=== PATIENT | female | born 1965 | race Caucasian/White ===

== ENCOUNTER 2016-09-21 12:17 | Day surgery (SDC) | payer BC ==
[~2016-09-21] VITALS: Ht 165.1 cm; Wt 60.7 kg
[2016-09-21] MEDS ORDERED: ALBUTEROL (13:02)
[2016-09-21] MEDS ORDERED: ZANTAC (13:02)
[2016-09-21] MEDS ORDERED: COLACE (13:02)
[2016-09-21 13:04] VITALS: Ht 165.1 cm; Wt 60.7 kg
[2016-09-21] MEDS ORDERED: PROPOFOL 40 ML ONE (14:11)
[2016-09-21 14:24] VITALS: BP 90/51; PULSE 71; RESP 12
[2016-09-21 15:20] VITALS: BP 104/53; PULSE 65; RESP 14
--- NOTE | 2016-09-21 16:02 | GILP ---
DATE OF PROCEDURE: NAME OF PROCEDURES: 1. Esophagogastroduodenoscopy and biopsy. 2. Colonoscopy and biopsy. SURGEON: Alonso Contreras MD PREOPERATIVE DIAGNOSES: 1. Chronic heartburn. 2. Screening colonoscopy. POSTOPERATIVE DIAGNOSES: 1. Hiatal hernia. 2. Reflux esophagitis with erosions. 3. Gastritis with erosions. 4. Gastric mucosal biopsies were taken for Helicobacter pylori test. 5. Colonoscopy all the way to the cecum. 6. Small transverse colon polyp and a small sigmoid colon polyp was removed using the biopsy forcep s. 7. Internal hemorrhoids. INDICATION FOR THE PROCEDURE: Ms. Hollis Franks is a 51-year-old female patient who had chronic heartburn, not responding to therapy. Patient also had a history of colon polyps and she needed scr eening colonoscopy. The procedures and possible complications were well explained to the patient. She understood and con sented to the procedures. DESCRIPTION OF PROCEDURE: Under the influence of anesthesia, the gastroscope was carefully introduc ed into the esophagus and under direct vision it was advanced to the stomach and through the pylorus , into the duodenal bulb and descending duodenum. FINDINGS: ESOPHAGUS: The patient had a hiatal hernia with reflux esophagitis. STOMACH: The patient had gastritis. Gastric mucosal biopsies were taken for the H. pylori test. DUODENUM: Normal. The colonoscope was carefully introduced in the rectum and under direct vision it was advanced all t he way to the cecum. FINDINGS: The patient had a small transverse colon polyp and a small polyp in the sigmoid colon and they were removed using the biopsy forceps. She was noted to have internal hemorrhoids. She tolerated the procedures very well and there was no complication from the procedures. At the en d of the procedures, she was awake with stable vital signs and she was discharged home to the care o f her family. IMPRESSION: Please see postoperative diagnoses. PLAN: 1. Nexium 24 hours p.o. q.a.m. 2. Await histopathology reports. 3. Next screening colonoscopy in 10 years. Dictated By: ALONSO ALVAREZ/JENNIFER Conf#: [id number] DID#: [id number]
== END 2016-09-21 15:19 | disposition home or self-care (01) ==
LOC: GIL 12:17
PROVIDERS: ATTEND Internal Medicine Gastroenterology
DX: Z12.11 Encounter for screening for malignant neoplasm of colon (principal); D12.3 Benign neoplasm of transverse colon; K44.9 Diaphragmatic hernia without obstruction or gangrene; K21.0 Gastro-esophageal reflux disease with esophagitis; K29.60 Other gastritis without bleeding; K64.8 Other hemorrhoids; J45.909 Unspecified asthma, uncomplicated
CPT/HCPCS: 43239; 45380; 87081; 88305; Z7610

== ENCOUNTER 2018-06-23 10:49 | Inpatient (IN) | payer BC ==
[~2018-06-23] VITALS: Ht 170.2 cm; Wt 60.6 kg
[~2018-06-23 10:49] MED LIST: ALBUTEROL; COLACE; ZANTAC
--- NOTE | 2018-06-23 11:25 | NUR ---
Procedure Ordered: CTA CEREBRAL NECK ANGIO Reason for Exam Today: CODE STOKE NUMBNESS WEAKNESS Previous Exams: Allergies: Current Medications Taken: Glucophage ( ) Metformin ( ) Previous reaction to contrast media: Yes ( ) No ( X) : Yes ( ) No ( X) Asthma: Yes ( ) No (X ) Diabetes: Yes ( ) No (X ) Myeloma: Yes ( ) No (X ) Heart Disease: Yes ( ) No (X ) Cardiac Disease: Yes ( ) No (X ) Kidney Disease: Yes ( ) No (X ) Vascular Disease: Yes ( ) No (X ) Patient Teaching done: Yes ( X) No ( ) Accounts Payable Processor Used: Yes ( ) No (X ) Name of Accounts Payable Processor: Language Used: As part of the test requested by your doctor, contrast media may be injected into your vein while the x-rays are being taken. Occasionally, reactions from IV contrast may occur. The physician and staff of this hospital are trained to treat these reactions. Select the type of Contrast that will be given to patient: Omnipaque 300 ( ) Omnipaque 350 ( ) Visipaque 320 (X ) Cystografin ( ) Gastrographin ( ) Redi-cat ( ) Volumen ( ) Amount of contrast to be given: 90CC IV ( X) PO ( ) Date given: 06/23/18 Lab Values: BUN: Creatinine: eGFR: NO LABS AT TIME OF SERVICE Reason why contrast cannot be given: Location of patient pre-procedure: ER BED5 Location of patient post procedure:ER BED 5 Patient tolerated exam well and returned to unit.
--- NOTE | 2018-06-23 11:27 | ERD ---
ER Documentation Chief Complaint Chief Complaint weakness & numbness in lft lower leg last night, dragging left leg, speech HPI This is a 53 year old female with a prior history of tobacco use who presents with weakness and numbness of her LLE since last night. Today noted intermittent slurred speech. No history of trauma, denies fever, no chest pain or shortness of breath ROS All systems reviewed and are negative except as per history of present illness. Medications Home Meds Discontinued Reported Medications [Colace] No Conflict Check 09/21/16 [Zantac] No Conflict Check 09/21/16 [Albuterol] No Conflict Check 09/21/16 Allergies Allergies: Coded Allergies: No Known Allergy (Unverified , 06/23/18) PMhx/Soc History of Surgery: Yes (KNEE SX) Anesthesia Reaction: No Hx Neurological Disorder: Yes (LUPUS) Hx Psychiatric Problems: No Hx Miscellaneous Medical Probl: No Hx Alcohol Use: No Hx Substance Use: No Hx Tobacco Use: No Physical Exam Vitals Vital Signs Date Temp Pulse Resp B/P (MAP) Pulse Ox O2 O2 Flow FiO2 Time Delivery Rate 06/23/18 75 17 116/69 100 Room Air 11:45 (85) 06/23/18 98.2 89 18 110/65 99 10:53 (80) Physical Exam Const: No acute distress Head: Atraumatic Eyes: Normal Conjunctiva ENT: Normal External Ears, Nose and Mouth. Neck: Full range of motion. No meningismus. Resp: Clear to auscultation bilaterally Cardio: Regular rate and rhythm, no murmurs Abd: Soft, non tender, non distended. Normal bowel sounds Skin: No petechiae or rashes Back: No midline or flank tenderness Ext: No cyanosis, or edema Neur: Awake and alert, CN II-XII, no cerebellar ataxia. There is 5/5 strength in all extremities with the exception of of the LLE where there is 4/5 over the left foot Psych: Normal Mood and Affect Result Diagram: 06/25/18 0547 06/25/18 0547 Results 24 hrs Laboratory Tests Test 06/23/18 11:15 White Blood Count 10.3 10^3/ul Red Blood Count 3.98 10^6/ul Hemoglobin 12.4 g/dl Hematocrit 38.2 % Mean Corpuscular Volume 96.0 fl Mean Corpuscular Hemoglobin 31.2 pg Mean Corpuscular Hemoglobin Concent 32.5 g/dl Red Cell Distribution Width 12.9 % Platelet Count 295 10^3/UL Mean Platelet Volume 8.7 fl Immature Granulocytes % 0.300 % Neutrophils % 63.6 % Lymphocytes % 22.4 % Monocytes % 6.3 % Eosinophils % 6.7 % Basophils % 0.7 % Nucleated Red Blood Cells % 0.0 /100WBC Immature Granulocytes # 0.030 10^3/ul Neutrophils # 6.6 10^3/ul Lymphocytes # 2.3 10^3/ul Monocytes # 0.7 10^3/ul Eosinophils # 0.7 10^3/ul Basophils # 0.1 10^3/ul Nucleated Red Blood Cells # 0.0 10^3/ul Prothrombin Time 12.1 Sec Prothrombin Time Ratio 0.9 INR International Normalized Ratio 0.89 Activated Partial Thromboplast Time 29.1 Sec Sodium Level 138 mmol/L Potassium Level 4.1 mmol/L Chloride Level 103 mmol/L Carbon Dioxide Level 28 mmol/L Anion Gap 7 Blood Urea Nitrogen 12 mg/dl Creatinine 0.87 mg/dl Est Glomerular Filtrat Rate mL/min > 60 mL/min Glucose Level 89 mg/dl Hemoglobin A1c 5.3 % Calcium Level 9.5 mg/dl Creatine Kinase 126 IU/L Creatine Kinase Index 1.4 Creatinine Kinase MB (Mass) 1.71 ng/ml Troponin I < 0.012 ng/ml Triglycerides Level 210 mg/dl Cholesterol Level 191 mg/dl LDL Cholesterol, Calculated 90 mg/dl HDL Cholesterol 59 mg/dl Cholesterol/HDL Ratio 3.2 RATIO Free Thyroxine 1.03 ng/dl Ethyl Alcohol Level < 10.0 mg/dl Procedures/MDM This is a 53 year old female who presents with left foot numbness and intermittent slurred speech. Code stroke called given onset of symptoms, although also considered that LLE symptoms could be peripheral neuropathy. CT was negative for acute findings. tPA not recommended per neurology. Recommended MRI to evaluate for possible stroke. Patient admitted to medicine hospitalist team. Departure Diagnosis: Primary Impression: Acute weakness Additional Impression: Slurred speech AZRA KELLER MD Jun 23, 2018 11:27
--- NOTE | 2018-06-23 12:05 | STROKE ---
Date/Time of Note Date/Time of Note DATE: 06/23/18 TIME: 12:04 Patient Information General Patient location: emergency Arrival Date Age 53 Gender female Weight 60.2 kg Vital Signs Vital Signs Vital Signs Date Temp Pulse Resp B/P (MAP) Pulse Ox O2 O2 Flow FiO2 Time Delivery Rate 06/23/18 75 17 116/69 100 Room Air 11:45 (85) 06/23/18 98.2 10:53 Patient History Current Medications Allergies: Coded Allergies: No Known Allergy (Unverified , 06/23/18) Labs Coagulation Labs: Coagulation Test 06/23/18 11:15 Activated Partial Thromboplast Time 29.1 Sec (23.0-35.0) History & Physical History of Present Illness 53 F PMH SLE, Raynaud's, HTN, LKW 2300 PST 06/22/2018 with LLE weakness. Later developed dysarthria today. NIH Stroke Scale NIH Stroke Scale [id number] Total Score: [id number] Date/Time Recorded DATE: 06/23/18 TIME: 11:33 Submitted By Hunter Ramos t-PA Imaging Review Date/Time Imaging Reviewed DATE: 06/23/18 TIME: 12:04 t-PA Administration Weight 60.2 kg Recommedation submitted by Hunter Ramos Recommendations Recommendation 53 F with 12 hrs of isolated mild LLE weakness/numbness. Question regarding stroke as possible cause. NIHSS 1 for mild LLE weakness. Localization outside of [employer]ING [employer] more likely, but stroke can be further ruled-out with MRI Brain. - MRI Brain stroke sequence (Flair, DWI, ADC) can further rule-out stroke. If no stroke on MRI Brain then further work-up for non-cerebral causes per local Neurology team HUNTER RAMOS MD Jun 23, 2018 12:05
[2018-06-23 13:13] VITALS: PULSE 83
[2018-06-23] MEDS ORDERED: HYDROCODONE/APAP (5/325) TAB PO PRN ×2 (13:30)
[2018-06-23] MEDS ORDERED: ALBUTEROL/IPRATROPIUM (NEB) 3 ML AMP HHN PRN (13:30)
[2018-06-23] MEDS ORDERED: ACETAMINOPHEN 325 MG TAB PO PRN ×2 (13:30)
[2018-06-23] MEDS ORDERED: DOCUSATE SODIUM 100 MG CAP PO PRN ×2 (13:30)
[2018-06-23] MEDS ORDERED: NACL 0.9% 3 ML SYG IV SCH ×2 (13:30)
[2018-06-23] MEDS ORDERED: NITROGLYCERIN (SL) 0.4 MG TAB SL PRN (13:30)
[2018-06-23] MEDS ORDERED: ONDANSETRON 4 MG INJ IV PRN ×2 (13:30)
[2018-06-23] MEDS ORDERED: morphine 2 MG INJ IV PRN (13:30)
[2018-06-23] MEDS ORDERED: MAGNESIUM HYDROXIDE 30ML CUP PO PRN ×2 (13:30)
--- NOTE | 2018-06-23 13:48 | HP ---
Date/Time of Note Date/Time of Note DATE: 06/23/18 TIME: 13:45 Assessment/Plan VTE Prophylaxis SCD applied (from Nsg): Yes Pharmacological prophylaxis: other Lines/Catheters IV Catheter Type (from Nrsg): Saline Lock Assessment/Plan Hospital Course Assessment and plan: 53-year-old female hypertension, smoker, lupus, Raynaud's who comes in with left lower extremity numbness anterior rojas and left foot drop, rule out stroke versus TIA. #Left lower extremity weakness: Rule out stroke versus TIA. Again she is got numbness on the left anterior rojas area and cannot dorsiflex left foot. CTA head neck shows abnormalities. -Admit patient, allow for permissive hypertension, check TSH A1c lipid panel -Put patient on high-dose aspirin, Lipitor, get neurology consult -Follow-up results of MRI brain, echo, carotid Doppler study, get PT and OT and speech therapy consults as well #Smoking history: Patient refusing nicotine patch, counseled on cessation # HTN -see above, for now allow for permissive hypertension at least for 24 hours #Lupus and Raynaud's: No present issues continue - monitor for now Result Diagram: 06/23/18 1115 06/23/18 1115 Results 24hrs Laboratory Tests Test 06/23/18 11:15 White Blood Count 10.3 Red Blood Count 3.98 L Hemoglobin 12.4 Hematocrit 38.2 Mean Corpuscular Volume 96.0 Mean Corpuscular Hemoglobin 31.2 Mean Corpuscular Hemoglobin Concent 32.5 Red Cell Distribution Width 12.9 Platelet Count 295 Mean Platelet Volume 8.7 Immature Granulocytes % 0.300 Neutrophils % 63.6 Lymphocytes % 22.4 Monocytes % 6.3 Eosinophils % 6.7 Basophils % 0.7 Nucleated Red Blood Cells % 0.0 Immature Granulocytes # 0.030 Neutrophils # 6.6 Lymphocytes # 2.3 Monocytes # 0.7 Eosinophils # 0.7 H Basophils # 0.1 Nucleated Red Blood Cells # 0.0 Prothrombin Time 12.1 Prothrombin Time Ratio 0.9 INR International Normalized Ratio 0.89 Activated Partial Thromboplast Time 29.1 Sodium Level 138 Potassium Level 4.1 Chloride Level 103 Carbon Dioxide Level 28 Anion Gap 7 Blood Urea Nitrogen 12 Creatinine 0.87 Est Glomerular Filtrat Rate mL/min > 60 Glucose Level 89 Hemoglobin A1c 5.3 Calcium Level 9.5 Creatine Kinase 126 Creatine Kinase Index 1.4 Creatinine Kinase MB (Mass) 1.71 Troponin I < 0.012 Triglycerides Level 210 H Cholesterol Level 191 LDL Cholesterol, Calculated 90 HDL Cholesterol 59 Cholesterol/HDL Ratio 3.2 Ethyl Alcohol Level < 10.0 H HPI/ROS Admit Date/Time Admit Date/Time Jun 23, 2018 at 11:59 Hx of Present Illness 53-year-old female past medical history of smoking for 30 years, hypertension, renounce disease, lupus, who presents today after experiencing left lower extremity foot numbness and weakness. Patient states symptoms have been last night. She called family member who is a nursing assistants teacher who reassured patient that symptoms may not be too concerning. But did recommend patient take baby aspirin which she took. She was able to walk. She went to sleep but this morning the symptoms persisted which included numbness and weakness particularly in the foot area. Patient however states she is able to ambulate. No upper or lower GI bleeding, diarrhea, space, fever chills, nausea vomiting, chest pain shortness breath. Patient never had these symptoms before. Denies any prior history of any stroke or heart attack. She became concerned and came into the ER. When she came in a code stroke was called. Head CT appeared to be negative. However CTA neck showed: Mild intracranial hemorrhage or large territorial infarct. Early ischemic injury may be occult to CT imaging and diffusion weighted MRI may be considered as clinically warranted. MRI of the brain is pending. PMH/Family/Social Past Medical History Medications Current Medications IV Flush (NS 3 ml) 3 ml PER PROTOCOL IV ; Start 06/23/18 at 13:30; Status UNV Ondansetron HCl (Zofran Inj) 4 mg Q6H PRN IV NAUSEA AND/OR VOMITING; Start 06/23/18 at 13:30; Status UNV Acetaminophen (Tylenol Tab) 650 mg Q6H PRN PO PAIN LEVEL 1-3 OR FEVER; Start 06/23/18 at 13:30; Status UNV Acetaminophen/ Hydrocodone Bitart (Par[place]ise (5/325)) 1 tab Q6H PRN PO MODERATE PAIN LEVEL 4-6; Start 06/23/18 at 13:30; Status UNV Morphine Sulfate (morphine) 2 mg Q4H PRN IV SEVERE PAIN LEVEL 7-10; Start 06/23/18 at 13:30; Status UNV Docusate Sodium (Colace) 100 mg Q12H PRN PO CONSTIPATION; Start 06/23/18 at 13:30; Status UNV Magnesium Hydroxide (Milk Of Mag) 30 ml DAILY PRN PO CONSTIPATION; Start 06/23/18 at 13:30; Status UNV Lorazepam (Ativan) 0.5 mg Q6H PRN IV ANXIETY; Start 06/23/18 at 13:30; Status UNV Albuterol/ Ipratropium (Duoneb) 3 ml Q4H RESP THERAPY PRN HHN SHORTNESS OF BREATH; Start 06/23/18 at 13:30; Status UNV Nitroglycerin (Nitroglycerin (Sl Tab) 0.4 Mg) 1 tab Q5M PRN SL ANGINA; Start 06/23/18 at 13:30; Status UNV IV Flush (NS 3 ml) 3 ml PER PROTOCOL IV ; Start 06/23/18 at 13:30; Status UNV Acetaminophen (Tylenol Tab) 650 mg Q6H PRN PO PAIN LEVEL 1-3 OR FEVER; Start 06/23/18 at 13:30; Status UNV Acetaminophen/ Hydrocodone Bitart (Paradise (5/325)) 1 tab Q6H PRN PO MODERATE PAIN LEVEL 4-6; Start 06/23/18 at 13:30; Status UNV Morphine Sulfate (morphine) 2 mg Q4H PRN IV SEVERE PAIN LEVEL 7-10; Start 06/23/18 at 13:30; Status UNV Docusate Sodium (Colace) 100 mg Q12H PRN PO CONSTIPATION; Start 06/23/18 at 13:30; Status UNV Magnesium Hydroxide (Milk Of Mag) 30 ml DAILY PRN PO CONSTIPATION; Start 06/23/18 at 13:30; Status UNV Heparin Sodium (Porcine) (Heparin (5000 Units/1ml)) 5,000 unit Q12 SC ; Start 06/23/18 at 21:00; Status UNV Coded Allergies: No Known Allergy (Unverified , 06/23/18) Past Surgical History Past Surgical Hx: other (Shoulder) Family History Significant Family History: no pertinent family hx Social History Alcohol Use: occasionally Smoking Status: Current every day smoker (53-lkgc-uutg history) Drug Use: none Exam/Review of Systems Vital Signs Vitals Vital Signs Date Temp Pulse Resp B/P (MAP) Pulse Ox O2 O2 Flow FiO2 Time Delivery Rate 06/23/18 72 17 131/83 100 Room Air 12:52 (99) 06/23/18 98.2 10:53 Exam Exam Gen: lying in bed, no acute distress Head: Atraumatic Eyes: Normal Conjunctiva ENT: Normal External Ears, Nose and Mouth. Neck: Full range of motion. No meningismus. Resp: Clear to auscultation bilaterally Cardio: Regular rate and rhythm, no murmurs Abd: Soft, non tender, non distended. Normal bowel sounds Neuro: some LLE numbness anterior rojas, not able to dorsiflex left foot, rest of neurologic exam including strength and sensation both upper and lower extremities appears to be intact. Gait was not assessed LUIS MIGUEL DOVE Jun 23, 2018 13:47
[2018-06-23 14:00] VITALS: BP 124/66; PULSE 74; RESP 20
[2018-06-23] MEDS ORDERED: morphine 4 MG/ML VIAL IV PRN (14:00)
--- NOTE | 2018-06-23 14:00 | NUR ---
Admission Received Pt from ER via stretcher. Pt ao x 4 and stable. Per Pt she went to the ER because of numbness on her left lower leg. Pt stated that it started last night till this morning. Pt placed in manager cardiac cath. NIHSS assessment and Stroke checklist done. Admission assessment and questions done. Pt refused to have pictures taken, charge nurse made aware. Belongings kept with Pt in room consist as: 1 set of clothes, 1 purse, 1 wallet, 1 phone instruction assistant principal, 1 cellphone, 1 eyeglasses, 1 pair of shoes.
[2018-06-23] MEDS ORDERED: SOD CHLORIDE 0.9% 100 ML ONE (14:10)
[2018-06-23] MEDS ORDERED: IODIXANOL LOCM 100 ML BTL ONE (14:10)
[2018-06-23] MEDS ORDERED: hydrALAzine 20 MG INJ IV PRN (14:30)
[2018-06-23] MEDS: ATORVASTATIN 80 MG TAB PO SCH (14:54)
[2018-06-23 15:11] VITALS: Ht 170.2 cm; Wt 60.6 kg
[2018-06-23 15:19] VITALS: BP 119/67; PULSE 77; RESP 18
[2018-06-23 16:10] VITALS: PULSE 85
--- NOTE | 2018-06-23 18:23 | NUR ---
EOSS Pt ao x4 and stable at this time. Pt in no distress noted throughout the shift. Neuro check done and no change noted, Pt continues to complain of left lower leg numbness. Bedside swallow evaluation done and Pt passed. Pt was updated regarding plan of care. Pt stated she wanted to smoke outside. Pt was instructed that the hospital is a smoke free zone. Pt refused to use nicotine patch. Provided Pt education regarding smoking cessation. Charge nurse made aware. Call light within reach. Hourly rounding provided. Will endorse to next shift accordingly.
[2018-06-23 20:00] VITALS: BP 138/83; PULSE 91; PULSE 96; RESP 19
[2018-06-23] MEDS ORDERED: HEPARIN 5,000 UNIT/1 ML VIAL SC SCH (21:00)
[2018-06-23] MEDS: LORAZEPAM 2 MG INJ IV PRN (23:00)
[2018-06-24] VITALS (8 sets, daily range): BP systolic 114–138; BP diastolic 63–79; PULSE 67–93; RESP 17–20
--- NOTE | 2018-06-24 06:43 | NUR ---
EOSS AAOx4, VSS, O2 sat 96% on RA, no complaints of pain. Neuro checks Q4H, no major changes noted during neuro checks. Patient has slight limb drift of LLE and mild sensory loss. Patient complaint of difficulty sleeping, Ativan PRN administered x1. Hourly rounding done, encouraged pt. to reposition self in bed frequently. Patient stable at this time, will endorse to oncoming shift.
[2018-06-24] MEDS: ASPIRIN (EC) 81 MG TAB PO SCH (08:53)
[2018-06-24] MEDS: ATORVASTATIN 80 MG TAB PO SCH (08:53)
--- NOTE | 2018-06-24 09:53 | RADRPT ---
Echocardiogram Report Patient Name: LUKAS BAL Gender: Female Date: 1965 Study Date: 23-Jun-2018 Packing Machine Can Feeder: Jennifer Jesus RDCS Location: 510-A Ref. Physician: LUIS MIGUEL DOVE Quality: Adequate Procedures: Transthoracic echocardiogram with complete 2D, M-Mode, and doppler examination. Indications: Coronary Artery Disease. 2D/M Mode Doppler Measurement Value Normal Ranges Measurement Value Normal Ranges LVIDd 2D 3.3 3.5 - 5.6 cm AV Peak Gino 1.4 m/sec LVIDs 2D 2.2 2.1 - 4.1 cm AV Peak PG 8.0 mmHg LVPWd 2D 0.9 0.6 - 1.1 cm LVOT Peak Gino 1.0 m/sec IVSd 2D 0.6 0.6 - 1.1 cm LVOT Peak PG 4.0 mmHg AoR Diam 2D 2.3 2.0 - 3.7 cm MV E Peak Gino 0.9 m/sec LA/Ao 2D 1 0 - 1 MV A Peak Gino 0.7 m/sec LA Dimen 2D 2.8 2.3 - 4.0 cm MV E/A 1.4 MV Decel Time 173 msec Lat E` Gino 0.1 m/sec Lateral E/E` 8.9 Med E` Gino 0.1 m/sec MV E/A 1.4 Findings Left Ventricle: Normal left ventricular systolic function. Normal left ventricular cavity size. Normal left ventricular wall thickness. Ejection fraction is visually estimated at 55 %. Tissue Doppler/Mitral Doppler indices are within normal limits. Right Ventricle: Normal right ventricular size. Normal right ventricular systolic function. Left Atrium: The left atrium is normal in size. Right Atrium: The right atrium is normal in size. Mitral Valve: Normal appearance of the mitral valve. No mitral valve regurgitation is seen. Aortic Valve: Normal appearance of the aortic valve. No aortic regurgitation. Tricuspid Valve: Normal appearance of the tricuspid valve. No evidence of tricuspid regurgitation. Pericardium: Normal pericardium with no significant pericardial effusion. Aorta: Normal aortic root. IVC: Normal size and normal respiratory collapse consistent with normal right atrial pressure. Conclusions Normal left ventricular systolic function. Normal left ventricular cavity size. Normal left ventricular wall thickness. Ejection fraction is visually estimated at 55 %. Tissue Doppler/Mitral Doppler indices are within normal limits. Normal appearance of the mitral valve. No mitral valve regurgitation is seen. Normal appearance of the tricuspid valve. No evidence of tricuspid regurgitation. Electronically Signed By: Eddie Angel 24-Jun-2018 09:52:47 -0800 Patient Name: LUKAS BAL Study Date: 23-Jun-2018 [id number]
--- NOTE | 2018-06-24 10:02 | NUR ---
PT EVALUATION , Therapy day number 1 Evaluation Start Time 09:00 Evaluation Total Time 0 min Subjective Denies pain Pain Scale NUMERIC Pain Intensity 0 (0-10) Patient Stated Goal for Pain Relief 0 (0-10) Pain Level Comment N/A . Pre Treatment Vital Signs Stable Yes - BP:116/67 HR"67 Exercise Assessment Label Bilat Lower Extremity Exercise Type Active ROM Additional Exercise Comments AP, SELF STRETCHING LT FOOT/ANKLE . KNEE FLEX, EXT, SLR , ADD , ABD AND SAQ Supine to Sit Independent Transfer Sit to Stand Ability Independent Bed Mobility Sit to Supine Stand by Assist Bed Transfer Ability Independent Chair Transfer Ability Independent Sitting Tolerance 1 min Patient uses wheelchair Not Applicable Gait Assist Levels Contact Guard Assist Assistive Devices None Ambulation Distance 100 feet Additional Gait Comments ABNORMAL GAIT PATTERN DUE TO LLE WEAKNESS , LT FOOT DROP Weight Bearing Assessment Label Bilat Lower Extremity Weight Bearing Status Full Weight Bearing Static Sitting Balance Good Dynamic Sitting Balance Good Standing Static Balance Good Dynamic Standing Balance Fair plus Additional Balance Assessments Comments WITHOUT AD / REFUSING TO USE AD FOR AMBUKLATION . Safety Judgement Fair Activity Tolerance Good Post Treatment Pain Intensity 0 0-10 Variance Documentation P/S SEE PT NOTE . PT Technical Record Comment PT EVALUATION , RN CLEARED , PATIENT AGREEABLE . PATIENT IS A 53 Y/O FEMALE ALERT AND ORIENTED TO SELF , SITUATION , WITH PMH: HTN , SMOKER , LUPUS , RAYNAUD'S , ADMITTED TO [facility] WITH LLE NUMBNESS, ANTERIOR [place] LT FOOT DROP , AND ADMITTED TO R/O CVA, VS TIA , CT BRAIN REVEALED NO ACUTE INTRACRANIAL PATHOLOGY AND MRI ALSO REVEALED NO ACUTE INFARCT. .P/S SEE PT NOTE FOR PATIENT'S FUNCTIONAL STATUS , GAIT TR WITHOUT AD PERFORMED 100, CG/SAB ( PATIENT UNWILLING TO USE AD ), PATIENT HAS ABNORMAL GAIT PATTERN DUE TO LLE WEAKNESS /NUMBNESS WITH SLIGHT LIMB AND DRIFT OF LLE , NO LOB NOTED , VS STABLE TOLERATED TREATMENT WELL , PATIENT IS CLEARED TO AMBULATE WITH NSG STAFF SHORT DISTANCE , UNTIL HER LT AFO ARRIVES . A: PATIENT LIVES WITH FAMILY IN AN APARTMENT WITH NO ENTRY STAIR , PATIENT HAS BEEN FUNCTIONAL AND IND.AMBULATORY WITHOUT AD , PT RECOMMEND TO PROVIDE LT AFO TO IMPROVE GAIT STABILITY/PREVENT FALL , ALSO PT HIGHLY RECOMMEND TO CONTINUE WITH OUT PATIENT PT ONCE DISCHARGED HOME , RN AND MD NOTIFIED . P: PT DAILY X5 , THERA EXE'S LLE , STR EXE'S LLE , GAIT TR WITH LT AFO, WITH EMPHASIS ON GAIT NORMALIZATION , PATIENT EDUCATION AND TRAINING .
--- NOTE | 2018-06-24 11:15 | NUR ---
ST NOTE: Pt is a 53-year-old female hypertension, smoker, lupus, Raynaud's who comes in with left lower extremity numbness anterior rojas and left foot drop, rule out stroke versus TIA. CT negative for acute stroke MRI showed 1.No acute infarct. No intracranial hemorrhage nor mass lesion. 2. Mild multifocal bifrontal and left parietal subcortical and periventricular white matter disease also involving the janie. Findings are thought most likely to reflect chronic small vessel ischemia. Alternative potential etiologies include sequelae of prior trauma, infection, vasculitis, demyelinating disease or migraine headaches. 3. Deviated nasal septum with large nasal septal defect. 4. Trace paranasal sinus disease without sinus air fluid level. pt afebrile;lungs clear; premorbid diet; reg/thin current diet; reg/thin pt seen with am tray; no overt s/s of difficulty with all textures; cognition wfl; no therapy indicated at this time
--- NOTE | 2018-06-24 15:01 | NUR ---
OT MARBIN: RN CLEARED , PATIENT AGREEABLE . PATIENT IS A 53 Y/O FEMALE WITH HTN , SMOKER , LUPUS , RAYNAUD'S , ADMITTED TO [facility] WITH LLE NUMBNESS, ANTERIOR [place] LT FOOT DROP , AND ADMITTED TO R/O CVA, VS TIA , CT BRAIN REVEALED NO ACUTE INTRACRANIAL PATHOLOGY AND MRI ALSO REVEALED NO ACUTE INFARCT. PLOF: PATIENT LIVES WITH FAMILY IN AN APARTMENT WITH NO ENTRY STAIR , PATIENT HAS BEEN INDEPENDENT WITH ADL'S AND .AMBULATORY WITHOUT AD. CLOF: PT RECEIVED SUPINE IN BED AND AGREEABLE FOR TX. PT AOX4 AND STATED 0/10 PAIN. PT DEMONSTRATED BUE AROM WFL 5/5. PT PERFORMED TOILET TRANSFER WITH SUPERVISION. PT IS INDEPENDENT WITH UB/LB BATHING, DRESSING AND H/G TASKS. PT IS INDEPENDENT/ SUPERVISION WITH ADL'S - NO FURTHER SKILLED OT WARRANTED. D/C OT
--- NOTE | 2018-06-24 15:29 | PN ---
Date/Time of Note Date/Time of Note DATE: 06/24/18 TIME: 15:21 Assessment/Plan VTE Prophylaxis Risk score (from Ns)>0 risk: 1 SCD applied (from Nsg): Yes Pharmacological prophylaxis: NA/contraindicated Pharm contraindication: low risk/ambulating Lines/Catheters IV Catheter Type (from Nrs): Saline Lock Urinary Cath still in place: No Assessment/Plan Assessment/Plan 53-year-old female hypertension, smoker, lupus, Raynaud's who comes in with left lower extremity numbness anterior rojas and left foot drop, rule out stroke versus TIA. #Left lower extremity weakness: Rule out stroke versus TIA. Again she is got numbness on the left anterior rojas area and cannot dorsiflex left foot. CTA head neck shows abnormalities. -MRI and CTA brain reviewed; no stroke but not entirely normal.... Dr. Edwards consulted, will wait for her input. -Put patient on high-dose aspirin, statin. -Follow-up results of MRI brain, echo, carotid Doppler study, get PT and OT and speech therapy consults as well #Smoking history: Patient refusing nicotine patch, counseled on cessation # HTN - currently normotensive. #Lupus and Raynaud's: No present issues continue - monitor for now - She reports lupus flares 10 and 12 years ago (alopecia and malar rash, both treated with steroid course). She's not on plaquenil or other DMARDs. Result Diagram: 06/24/18 0552 06/24/18 0552 Results 24hrs Laboratory Tests Test 06/24/18 05:52 White Blood Count 10.4 Red Blood Count 3.93 L Hemoglobin 12.2 Hematocrit 37.6 Mean Corpuscular Volume 95.7 Mean Corpuscular Hemoglobin 31.0 Mean Corpuscular Hemoglobin Concent 32.4 Red Cell Distribution Width 13.0 Platelet Count 286 Mean Platelet Volume 9.1 Immature Granulocytes % 0.400 Neutrophils % 62.4 Lymphocytes % 22.1 Monocytes % 7.1 Eosinophils % 7.3 H Basophils % 0.7 Nucleated Red Blood Cells % 0.0 Immature Granulocytes # 0.040 H Neutrophils # 6.5 Lymphocytes # 2.3 Monocytes # 0.7 Eosinophils # 0.8 H Basophils # 0.1 Nucleated Red Blood Cells # 0.0 Sodium Level 137 Potassium Level 4.6 Chloride Level 101 Carbon Dioxide Level 27 Anion Gap 9 Blood Urea Nitrogen 19 Creatinine 0.89 Est Glomerular Filtrat Rate mL/min > 60 Glucose Level 98 Hemoglobin A1c 5.3 Calcium Level 9.6 Triglycerides Level 80 Cholesterol Level 169 LDL Cholesterol, Calculated 83 HDL Cholesterol 70 # Cholesterol/HDL Ratio 2.4 Thyroid Stimulating Hormone (TSH) 5.170 H Subjective 24 Hr Interval Summary Free Text/Dictation No acute overnight events. Patient is up and ambulating around with help from PT. Overall seems somewhat anxious. Asking to go home multiple times today but is redirectable, not threatening AMA. Exam/Review of Systems Vital Signs Vitals Vital Signs Date Temp Pulse Resp B/P (MAP) Pulse Ox O2 O2 Flow FiO2 Time Delivery Rate 06/24/18 93 12:13 06/24/18 98.1 18 138/74 100 11:58 (95) 06/23/18 Room Air 15:19 Intake and Output 06/23/18 06/23/18 06/24/18 1414:59 22:59 06:59 IntakeIntake Total 300 ml BalanceBalance 300 ml Exam Gen: Well developed woman standing, ambulatory Eyes: Very dilated pupils bilaterally with poor response to light. Normal conjunctiva ENT: Normal External Ears, Nose and Mouth. Neck: Full range of motion. No meningismus. Resp: Clear to auscultation bilaterally Cardio: Regular rate and rhythm, no murmurs Abd: Soft, non tender, non distended. Normal bowel sounds Neuro: some LLE numbness anterior rojas, not able to dorsiflex left foot, rest of neurologic exam including strength and sensation both upper and lower e xtremities appears to be intact. Able to ambulate a few steps without walker but with L foot drop. Medications Medications Current Medications Ondansetron HCl (Zofran Inj) 4 mg Q6H PRN IV NAUSEA AND/OR VOMITING; Start 06/23/18 at 13:30 Acetaminophen/ Hydrocodone Bitart ([place] (5/325)) 1 tab Q6H PRN PO MODERATE PAIN LEVEL 4-6; Start 06/23/18 at 13:30 Morphine Sulfate (morphine) 2 mg Q4H PRN IV SEVERE PAIN LEVEL 7-10; Start 06/23/18 at 14:00 Magnesium Hydroxide (Milk Of Mag) 30 ml DAILY PRN PO CONSTIPATION; Start 06/23/18 at 13:30 Lorazepam (Ativan) 0.5 mg Q6H PRN IV ANXIETY Last administered on 06/23/18at 23:00; Admin Dose 0.5 MG; Start 06/23/18 at 13:30 Albuterol/ Ipratropium (Duoneb) 3 ml Q4H RESP THERAPY PRN HHN SHORTNESS OF BESSY ATH; Start 06/23/18 at 13:30 Nitroglycerin (Nitroglycerin (Sl Tab) 0.4 Mg) 1 tab Q5M PRN SL ANGINA; Start 06/23/18 at 13:30 IV Flush (NS 3 ml) 3 ml PER PROTOCOL IV ; Start 06/23/18 at 13:30 Acetaminophen (Tylenol Tab) 650 mg Q6H PRN PO PAIN LEVEL 1-3 OR FEVER; Start 06/23/18 at 13:30 Docusate Sodium (Colace) 100 mg Q12H PRN PO CONSTIPATION; Start 06/23/18 at 13:30 Atorvastatin Calcium (Lipitor) 80 mg DAILY PO Last administered on 06/24/18at 08:53; Admin Dose 80 MG; Start 06/23/18 at 14:30 Aspirin (Halfprin) 162 mg DAILY PO Last administered on 06/24/18at 08:53; Admin Dose 162 MG; Start 06/24/18 at 09:00 Hydralazine HCl (Apresoline) 10 mg Q6H PRN IV BLOOD PRESSURE SUPPORT; Start 06/23/18 at 14:30 JORGE LUIS RAMOS MD Jun 24, 2018 15:29
--- NOTE | 2018-06-24 16:40 | CONS ---
Assessment/Plan Assessment/Plan Hospital Course 53 yo F with hx of SLE and other multiple comorbidities who p/w L leg numbness and foot drop, for which neurology is consulted. Her neurologic examination suggests a lower more neuron (peripheral nervous sy stem) etiology... MRI brain is reassuringly without significant intracranial pathology. CTA H/N is the same. P: MRI T/L spine with and without contrast for further characterization Add LFTs, CRP, ESR.. PT/OT as tolerated Other medical management per primary Will follow clinically Result Diagram: 06/24/18 0552 06/24/18 0552 Results 24hrs Laboratory Tests Test 06/24/18 05:52 White Blood Count 10.4 Red Blood Count 3.93 L Hemoglobin 12.2 Hematocrit 37.6 Mean Corpuscular Volume 95.7 Mean Corpuscular Hemoglobin 31.0 Mean Corpuscular Hemoglobin Concent 32.4 Red Cell Distribution Width 13.0 Platelet Count 286 Mean Platelet Volume 9.1 Immature Granulocytes % 0.400 Neutrophils % 62.4 Lymphocytes % 22.1 Monocytes % 7.1 Eosinophils % 7.3 H Basophils % 0.7 Nucleated Red Blood Cells % 0.0 Immature Granulocytes # 0.040 H Neutrophils # 6.5 Lymphocytes # 2.3 Monocytes # 0.7 Eosinophils # 0.8 H Basophils # 0.1 Nucleated Red Blood Cells # 0.0 Sodium Level 137 Potassium Level 4.6 Chloride Level 101 Carbon Dioxide Level 27 Anion Gap 9 Blood Urea Nitrogen 19 Creatinine 0.89 Est Glomerular Filtrat Rate mL/min > 60 Glucose Level 98 Hemoglobin A1c 5.3 Calcium Level 9.6 Triglycerides Level 80 Cholesterol Level 169 LDL Cholesterol, Calculated 83 HDL Cholesterol 70 # Cholesterol/HDL Ratio 2.4 Thyroid Stimulating Hormone (TSH) 5.170 H Consultation Date/Type/Reason Admit Date/Time Jun 23, 2018 at 11:59 Type of Consult Neurology Reason for Consultation LLE numbness, L foot weakness Requesting Provider: JORGE LUIS RAMOS MD Date/Time of Note DATE: 06/24/18 TIME: 16:40 Hx of Present Illness This is a 53 yo F with hx of SLE, reynauds disease, and other comorbidities who presented to the ED with L lower leg numbness and L foot drop. History was obtained from pt, who is a good historian, and chart review. The pt continues to endorse LLE numbness and L foot drop, which has been ongoing since yesterday afternoon, and subsequent gait instability. She denies headache, other weakness, dizziness, lethargy, confusion, speech/vision changes. It is additionally elsewhere noted: Hx of Present Illness 53-year-old female past medical history of smoking for 30 years, hypertension, renounce disease, lupus, who presents today after experiencing left lower extremity foot numbness and weakness. Patient states symptoms have been last night. She called family member who is a spooling supervisor who reassured patient that symptoms may not be too concerning. But did recommend patient take baby aspirin which she took. She was able to walk. She went to sleep but this morning the symptoms persisted which included numbness and weakness particularly in the foot area. Patient however states she is able to ambulate. No upper or lower GI bleeding, diarrhea, space, fever chills, nausea vomiting, chest pain shortness breath. Patient never had these symptoms before. Denies any prior history of any stroke or heart attack. She became concerned and came into the ER. When she came in a code stroke was called. Head CT appeared to be negative. However CTA neck showed: Mild intracranial hemorrhage or large territorial infarct. Early ischemic injury may be occult to CT imaging and diffusion weighted MRI may be considered as clinically warranted. MRI of the brain is pending. negative unless noted otherwise in HPI Exam/Review of Systems Vital Signs Vitals Vital Signs Date Temp Pulse Resp B/P (MAP) Pulse Ox O2 O2 Flow FiO2 Time Delivery Rate 06/24/18 73 16:00 06/24/18 98.4 18 117/79 100 15:32 (92) 06/23/18 Room Air 15:19 Intake and Output 06/23/18 06/23/18 06/24/18 1515:00 23:00 07:00 IntakeIntake Total 300 ml BalanceBalance 300 ml Exam PE: Gen Appearance: No Apparent Distress HEENT: Normocephalic Cardiovascular: Regular rate Lungs: Clear bilaterally Abdomen: Soft Extremities: Dry NE: The patient was alert and oriented. Language was normal. Fund of knowledge was normal. Pupils were equal and reactive to light. There was no afferent pupillary defect. Visual kumar were normal. Funduscopic examination was limited. Extra-ocular movements were full. Ptosis was absent. There was no nystagmus. Facial sensation was normal. Face was symmetric with normal strength. Hearing was intact. Palate movements were normal. Neck strength was normal. There was normal tongue bulk a nd speed of movement. Tone was normal. Muscle bulk was normal. I did not see fasciculations. Arms were strong to confrontation; legs were strong to confrontation; L ankle was strong, R ankle was weak to confrontation with impaired dorsiflexion. Sensation to light touch was diminished on the LLE. Vibration sensation was normal. Temperature and pinprick sensation was normal. Rapid alternating movements were normal. There was no dysmetria. There was no intention tremor. Gait was unsteady, dragging her L foot. Arm and leg reflexes were 2+ and symmetric. Wilson's sign was absent. Plantar responses were flexor. Medications Medications Current Medications Ondansetron HCl (Zofran Inj) 4 mg Q6H PRN IV NAUSEA AND/OR VOMITING; Start 06/23/18 at 13:30 Acetaminophen/ Hydrocodone Bitart ([place]amb[place] (5/325)) 1 tab Q6H PRN PO MODERATE PAIN LEVEL 4-6; Start 06/23/18 at 13:30 Morphine Sulfate (morphine) 2 mg Q4H PRN IV SEVERE PAIN LEVEL 7-10; Start 06/23/18 at 14:00 Magnesium Hydroxide (Milk Of Mag) 30 ml DAILY PRN PO CONSTIPATION; Start 06/23 at 13:30 Lorazepam (Ativan) 0.5 mg Q6H PRN IV ANXIETY Last administered on 06/23/18at 23:00; Admin Dose 0.5 MG; Start 06/23/18 at 13:30 Albuterol/ Ipratropium (Duoneb) 3 ml Q4H RESP THERAPY PRN HHN SHORTNESS OF BREATH; Start 06/23/18 at 13:30 Nitroglycerin (Nitroglycerin (Sl Tab) 0.4 Mg) 1 tab Q5M PRN SL ANGINA; Start 06/23/18 at 13:30 IV Flush (NS 3 ml) 3 ml PER PROTOCOL IV ; Start 06/23/18 at 13:30 Acetaminophen (Tylenol Tab) 650 mg Q6H PRN PO PAIN LEVEL 1-3 OR FEVER; Start 06/23/18 at 13:30 Docusate Sodium (Colace) 100 mg Q12H PRN PO CONSTIPATION; Start 06/23/18 at 13:30 Atorvastatin Calcium (Lipitor) 80 mg DAILY PO Last administered on 06/24/18at 08:53; Admin Dose 80 MG; Start 06/23/18 at 14:30 Aspirin (Halfprin) 162 mg DAILY PO Last administered on 06/24/18at 08:53; Admin Dose 162 MG; Start 06/24/18 at 09:00 Hydralazine HCl (Apresoline) 10 mg Q6H PRN IV BLOOD PRESSURE SUPPORT; Start 06/23/18 at 14:30 Past Medical History reviewed Medications Current Medications Ondansetron HCl (Zofran Inj) 4 mg Q6H PRN IV NAUSEA AND/OR VOMITING; Start 06/23/18 at 13:30 Acetaminophen/ Hydrocodone Bitart (Cambria (5/325)) 1 tab Q6H PRN PO MODERATE PAIN LEVEL 4-6; Start 06/23/18 at 13:30 Morphine Sulfate (morphine) 2 mg Q4H PRN IV SEVERE PAIN LEVEL 7-10; Start 06/23/18 at 14:00 Magnesium Hydroxide (Milk Of Mag) 30 ml DAILY PRN PO CONSTIPATION; Start 06/23/18 at 13:30 Lorazepam (Ativan) 0.5 mg Q6H PRN IV ANXIETY Last administered on 06/23/18at 23:00; Admin Dose 0.5 MG; Start 06/23/18 at 13:30 Albuterol/ Ipratropium (Duoneb) 3 ml Q4H RESP THERAPY PRN HHN SHORTNESS OF BREATH; Start 06/23/18 at 13:30 Nitroglycerin (Nitroglycerin (Sl Tab) 0.4 Mg) 1 tab Q5M PRN SL ANGINA; Start 06/23/18 at 13:30 IV Flush (NS 3 ml) 3 ml PER PROTOCOL IV ; Start 06/23/18 at 13:30 Acetaminophen (Tylenol Tab) 650 mg Q6H PRN PO PAIN LEVEL 1-3 OR FEVER; Start 06/23/18 at 13:30 Docusate Sodium (Colace) 100 mg Q12H PRN PO CONSTIPATION; Start 06/23/18 at 13:30 Atorvastatin Calcium (Lipitor) 80 mg DAILY PO Last administered on 06/24/18at 08:53; Admin Dose 80 MG; Start 06/23/18 at 14:30 Aspirin (Halfprin) 162 mg DAILY PO Last administered on 1/21/19at 08:53; Admin Dose 162 MG; Start 06/24/18 at 09:00 Hydralazine HCl (Apresoline) 10 mg Q6H PRN IV BLOOD PRESSURE SUPPORT; Start 06/23/18 at 14:30 Allergies: Coded Allergies: No Known Allergy (Unverified , 06/23/18) Past Surgical History reviewed Past Surgical Hx: other (Shoulder) Social History reviewed Alcohol Use: occasionally Smoking Status: Current every day smoker Drug Use: none KAMALA RHOADES NP Jun 24, 2018 16:40 EUGENIO ALMARAZ Jun 24, 2018 19:33
--- NOTE | 2018-06-24 18:25 | NUR ---
EOSS Pt ao x4. Pt stable at this time and in no distress noted throughout the shift. Neuro check done q4h, no change noted. Neuro SUPERVISOR PIPELINE came at bedside and saw Pt. Pending MRI to be done tonight, Pt was made aware. AFO brace per PT recommendation pending, case packer and sealer was consulted. Pt was updated regarding plan of care. All questions answered. All needs met. Room kept clean and clutter free. Call light within reach. Hourly rounding provided. Will endorse to next shift accordingly.
[2018-06-24] MEDS: LORAZEPAM 2 MG INJ IV PRN (21:20)
[2018-06-24] MEDS ORDERED: VITAMIN A & D 5 GM OINT PACKET TOP ONE (23:39)
[2018-06-25] VITALS (8 sets, daily range): BP systolic 111–125; BP diastolic 62–74; PULSE 57–90; RESP 18–20
[2018-06-25] MEDS: ASPIRIN (EC) 81 MG TAB PO SCH (08:32)
[2018-06-25] MEDS: ATORVASTATIN 80 MG TAB PO SCH (08:32)
--- NOTE | 2018-06-25 11:53 | NUR ---
PT NOTE [facility] Patient: Hollis Franks : 1965 Age/Sex: 53/F Unit#: [id number] Room/Bed: 510/A User: Breanna Ulrich PTA Date: 06/25/18 10:45 Type: PT Technical Record Therapy day number 2 Subjective Denies pain Pain Scale NUMERIC Pain Intensity 0 (0-10) Patient Stated Goal for Pain Relief 0 (0-10) Pain Level Comment denied pain Pre Treatment Vital Signs Stable Yes - 111/74 mmHg, 80 bpm, 100% O2 sat on RA Exercise Assessment Label Bilat Lower Extremity Exercise Type Active ROM Additional Exercise Comments standing HRs; sitting APs Exercise Start Time 11:30 Exercise End Time 11:40 Total Exercise Time 10 min (8-127) Transfer Training Start Time 10:45 Supine to Sit Independent Transfer Sit to Stand Ability Independent Bed Mobility Sit to Supine Independent Additional Mobility Comments donning/doffing AFO and shoe Transfer Training End Time 10:58 Total Transfer Training Time 13 min (8-127) Patient uses wheelchair Not Applicable Gait Training Start Time 10:59 Gait Assist Levels Supervised Assistive Devices None Ambulation Distance 300 feet Additional Gait Comments reciprocal gait, improved antalgic with AFO Gait Training End Time 11:29 Total Gait Training Treatment Time 30 min (8-127) Weight Bearing Assessment Label Bilat Lower Extremity Weight Bearing Status Full Weight Bearing Stair Climbing Ability Supervised Number of Stairs 20 Stairs Additional Stairs Assist Comments step through pattern Static Sitting Balance Good Dynamic Sitting Balance Good Standing Static Balance Good Dynamic Standing Balance Good Safety Judgement Good Activity Tolerance Good Additional Equipment Present L LE AFO Post Treatment Pain Intensity 0 0-10 Variance Documentation see PT note Total Treament Time 53 min (8-127) Total Minutes 53 Total Units 4 PT Technical Record Comment PT NOTE S: "I'm feeling much better today. My L foot feels stronger." Agreed to skilled PT. Cleared by CRAIG Hollis. O: Received walking in [place]. [employer] arrived to fit AFO. EOB sitting to neeraj/doff socks and shoes. Gait training without AD (pt declined AD), reciprocal gait, increased rudolph initially, VCs to decrease rudolph to prevent fall risk; pt demo'd good understanding/return. Noted improved antalgic gait with AFO. Returned to room to neeraj different AFO; continued gait training but pt returned to slight antalgic gait d/t discomfort. Replaced with first AFO. Stair training with 1 HR, step through pattern, steady ; L toes scraping against step while ascending initially but imrpoved with continuous training. Returned back to room; doffed AFO. Performed standing/seated L LE strengthening; easily fatigued. Post tx vitals: 111/74 mmHg, 80 bpm, 100% O2 sat on RA. Pt verbalized interest in outpatient PT d/t very active job and continuous weakness in L LE. Informed RN and CM. Left at EOB, call light and all necessities within reach. In no apparent distress. Informed RN. A: Pt vasu tx well. Pt reported improved L LE strength today. Improved gait pattern with AFO. Decreased endurance with seated APs. P: Continue with POC.
--- NOTE | 2018-06-25 15:02 | NUR ---
CM notes: This gag writer ordered AFO brace from [employer] , spoke with Gopi of [employer] who stated brace would be delivered by 10:30am today, HHPT recommending HHPT upon dc, this gag writer communicated recommendations to Dr. Orozco awaiting for order for HHPT, met with patient at the bedside who stated she will dc to home with family once dc'd. Seda Guadalupe RNCM
--- NOTE | 2018-06-25 15:52 | CONS ---
Assessment/Plan Assessment/Plan Hospital Course 53 yo F with hx of SLE and other multiple comorbidities who p/w L leg numbness and foot drop, for which neurology is consulted. Her neurologic examination suggests a lower motor neuron (peripheral nervous s ystem) etiology... MRI brain is reassuringly without significant intracranial pathology. CTA H/N is the same. MRI L spine is notable for disc protrusion and lateral recess impingement at L4- L5 MRI T spine is notable for disc protrusion and cord flattening at T9-T10 P: Ok to defer additional imaging for now PT/OT as tolerated Other medical management per primary Recommend EMG as outpatient Will follow clinically Result Diagram: 06/25/18 0547 06/25/18 0547 Results 24hrs Laboratory Tests Test 06/24/18 20:03 06/25/18 05:47 Erythrocyte Sedimentation Rate 34 H Total Bilirubin 0.3 Direct Bilirubin 0.00 Indirect Bilirubin 0.3 Aspartate Amino Transf (AST/SGOT) 31 Alanine Aminotransferase (ALT/SGPT) 13 Alkaline Phosphatase 88 C-Reactive Protein 0.8 Total Protein 8.5 H Albumin 4.5 White Blood Count 8.3 # Red Blood Count 3.85 L Hemoglobin 12.1 Hematocrit 36.9 L Mean Corpuscular Volume 95.8 Mean Corpuscular Hemoglobin 31.4 Mean Corpuscular Hemoglobin Concent 32.8 Red Cell Distribution Width 13.1 Platelet Count 270 Mean Platelet Volume 9.1 Immature Granulocytes % 0.100 Neutrophils % 52.9 Lymphocytes % 28.0 Monocytes % 9.1 Eosinophils % 8.9 H Basophils % 1.0 Nucleated Red Blood Cells % 0.0 Immature Granulocytes # 0.010 Neutrophils # 4.4 Lymphocytes # 2.3 Monocytes # 0.8 Eosinophils # 0.7 H Basophils # 0.1 Nucleated Red Blood Cells # 0.0 Sodium Level 138 Potassium Level 4.2 Chloride Level 104 Carbon Dioxide Level 27 Anion Gap 7 Blood Urea Nitrogen 19 Creatinine 0.93 Est Glomerular Filtrat Rate mL/min > 60 Glucose Level 99 Calcium Level 9.5 Consultation Date/Type/Reason Admit Date/Time Jun 23, 2018 at 11:59 Type of Consult Neurology Reason for Consultation LLE numbness, L foot weakness Requesting Provider: JORGE LUIS RAMOS MD Date/Time of Note DATE: 06/25/18 TIME: 15:52 24 HR Interval Summary Free Text/Dictation Continues telemetry monitoring. Pt states that her walking is much better today, that she has less of a foot drop and that she has improved dorsiflexion of her L foot. Exam Vital Signs Vitals Vital Signs Date Temp Pulse Resp B/P (MAP) Pulse Ox O2 O2 Flow FiO2 Time Delivery Rate 06/25/18 98.0 57 20 114/73 100 15:49 (87) 06/25/18 Room Air 04:00 Intake and Output 06/24/18 06/24/18 06/25/18 1515:00 23:00 07:00 IntakeIntake Total 650 ml 800 ml BalanceBalance 650 ml 800 ml Exam PE: Gen Appearance: No Apparent Distress HEENT: Normocephalic Cardiovascular: Regular rate Lungs: Clear bilaterally Abdomen: Soft Extremities: Dry NE: The patient was alert and oriented. Language was normal. Fund of knowledge was normal. Pupils were equal and reactive to light. There was no afferent pupillary defect. Visual kumar were normal. Funduscopic examination was limited. Extra-ocular movements were full. Ptosis was absent. There was no nystagmus. Facial sensation was normal. Face was symmetric with normal strength. Hearing was intact. Palate movements were normal. Neck strength was normal. There was normal tongue bulk and speed of movement. Tone was normal. Muscle bulk was normal. I did not see fasciculations. Arms were strong to confrontation; legs were strong to confrontation; L ankle was strong, R ankle was mildly weak to confrontation with impaired dorsiflexion. Sensation to light touch was diminished on the LLE. Vibration sensation was normal. Temperature and pinprick sensation was normal. Rapid alternating movements were normal. There was no dysmetria. There was no intention tremor. Gait was more steady today, slightly favoring her R leg, though much improved from prior. Arm and leg reflexes were 2+ and symmetric. Ankle reflex was slightly brisk on the L vs R. Wilson's sign was absent. Plantar responses were flexor. KAMALA RHOADES NP Jun 25, 2018 15:52 EUGENIO ALMARAZ Jun 25, 2018 19:28
--- NOTE | 2018-06-25 15:57 | PDOCDIS ---
Discharge Instructions DIAGNOSIS Discharge Diagnosis L4-L5 lumbar disc herniation with L5 radiculopathy and L foot drop. CONDITION [id number] Patient Condition: [id number] Good HOME CARE INSTRUCTIONS: [id number] Diet Instructions: [id number] Regular ACTIVITY: [id number] Activity Restrictions: [id number] Slowly Increase Activity [id number] Activity Restrictions [id number] Avoid lifting more than 20 Comment: lbs for 2 weeks. Avoid strenuous exercise. FOLLOW UP/APPOINTMENTS Follow-up Plan 1. See your primary care doctor in 1-2 weeks. 2. Always wear your foot brace when standing or walking. This is to prevent injury to the tendons and ligaments of your ankle while your nerves heal. 3. For lower back pain, you can take venv-heq-ibjegic tylenol up to 650mg or i buprofen up to 600 mg. 4. For severe lower back pain which doesn't respond to these, return to the emergency room. JORGE LUIS RAMOS MD Jun 25, 2018 15:57
--- NOTE | 2018-06-25 16:13 | NUR ---
SHERRI Notes: HHPT order faxed to Ronnie ROCKWELL vacation planner at [facility] .
--- NOTE | 2018-06-25 16:44 | DS ---
Date/Time of Note Date/Time of Note DATE: 06/25/18 TIME: 16:41 Discharge Summary Admission/Discharge Info Admit Date/Time Jun 23, 2018 at 11:59 Discharge Date/Time Jun 25, 2018 Discharge Diagnosis L4-L5 lumbar disc herniation with L5 radiculopathy and L foot drop. Patient Condition: Good Consults Dr. Edwards, neurology Procedures None Hx of Present Illness 53-year-old female past medical history of smoking for 30 years, hypertension, renounce disease, lupus, who presents today after experiencing left lower extremity foot numbness and weakness. Patient states symptoms have been last night. She called family member who is a jewelry setter who reassured patient that symptoms may not be too concerning. But did recommend patient take baby aspirin which she took. She was able to walk. She went to sleep but this morning the symptoms persisted which included numbness and weakness particularly in the foot area. Patient however states she is able to ambulate. No upper or lower GI bleeding, diarrhea, space, fever chills, nausea vomiting, chest pain shortness breath. Patient never had these symptoms before. Denies any prior history of any stroke or heart attack. She became concerned and came into the ER. When she came in a code stroke was called. Head CT appeared to be negative. However CTA neck showed: Mild intracranial hemorrhage or large territorial infarct. Early ischemic injury may be occult to CT imaging and diffusion weighted MRI may be considered as clinically warranted. MRI of the brain is pending. Hospital Course She got an MRI of the brain which ruled out acute stroke. CT angiogram head and neck with no acute ischemia. MRI of the spine showed a herniated L4-L5 disc with impingement on the L5 nerve foot, likely responsible for her symptoms. The day after admission the patient's foot drop significantly improved spontaneously. Physical therapy recommended a brace which she received. She will continue to get outpatient PT as prescribed. She was advised that an outpatient EMG may be necessary. Otherwise, she was provided with self-care instructions for handling LBP with disc herniation. Home Meds Discontinued Reported Medications [Colace] No Conflict Check 09/21/16 [Zantac] No Conflict Check 09/21/16 [Albuterol] No Conflict Check 09/21/16 Follow-up Plan 1. See your primary care doctor in 1-2 weeks. 2. Always wear your foot brace when standing or walking. This is to prevent injury to the tendons and ligaments of your ankle while your nerves heal. 3. For lower back pain, you can take [id number] tylenol up to 650mg or ibuprofen up to 600 mg. 4. For severe lower back pain which doesn't respond to these, return to the emergency room. Primary Care Provider Not On Staff Doctor Time spent on discharge: > 30 minutes Pending Labs Laboratory Tests Test 06/24/18 20:03 06/25/18 05:47 Erythrocyte Sedimentation 34 mm/Hr (0-30) Rate Total Bilirubin 0.3 mg/dl (0.2-1.3) Direct Bilirubin 0.00 mg/dl (0.00-0.20) Indirect Bilirubin 0.3 mg/dl (0-1.1) Aspartate Amino 31 IU/L (15-46) Transf (AST/SGOT) Alanine 13 IU/L (13-69) Aminotransferase (ALT/SGPT) Alkaline Phosphatase 88 IU/L (42-121) C-Reactive Protein 0.8 mg/dl (0.0-0.9) Total Protein 8.5 g/dl (6.1-8.1) Albumin 4.5 g/dl (3.3-4.9) White Blood Count 8.3 10^3/ul (4.8-10.8) Red Blood Count 3.85 10^6/ul (4.20-5.40) Hemoglobin 12.1 g/dl (12.0-16.0) Hematocrit 36.9 % (37.0-47.0) Mean Corpuscular Volume 95.8 fl (82.0-101.0) Mean Corpuscular Hemoglobin 31.4 pg (29.0-33.0) Mean Corpuscular 32.8 g/dl (32.0-37.0) Hemoglobin Concent Red Cell Distribution Width 13.1 % (11.5-14.5) Platelet Count 270 10^3/UL (140-415) Mean Platelet Volume 9.1 fl (7.4-10.4) Immature Granulocytes % 0.100 % (0.001-0.429) Neutrophils % 52.9 % (39.0-77.0) Lymphocytes % 28.0 % (15.0-51.0) Monocytes % 9.1 % (0.0-11.0) Eosinophils % 8.9 % (0.0-7.0) Basophils % 1.0 % (0.0-2.0) Nucleated Red Blood Cells % 0.0 /100WBC (0.0-0.0) Immature Granulocytes # 0.010 10^3/ul (0.0-0.031) Neutrophils # 4.4 10^3/ul (1.6-7.5) Lymphocytes # 2.3 10^3/ul (0.8-2.9) Monocytes # 0.8 10^3/ul (0.3-0.9) Eosinophils # 0.7 10^3/ul (0.0-0.5) Basophils # 0.1 10^3/ul (0.0-0.1) Nucleated Red Blood Cells # 0.0 10^3/ul (0.0-0.0) Sodium Level 138 mmol/L (135-144) Potassium Level 4.2 mmol/L (3.5-5.1) Chloride Level 104 mmol/L (97-110) Carbon Dioxide Level 27 mmol/L (21-31) Anion Gap 7 (5-13) Blood Urea Nitrogen 19 mg/dl (7-20) Creatinine 0.93 mg/dl (0.44-1.00) Est Glomerular Filtrat > 60 mL/min (>60) Rate mL/min Glucose Level 99 mg/dl (70-220) Calcium Level 9.5 mg/dl (8.4-10.2) JORGE LUIS RAMOS MD Jun 25, 2018 16:44
--- NOTE | 2018-06-25 16:48 | NUR ---
EOSS: pt is being discharge to home, VS stable, denies pain, denies SOB. Discharge packet given and reviewed with pt, pt verbalized understanding of packets content and teachings. all belongings packed and with pt.
== END 2018-06-25 16:49 | disposition home or self-care (01) | DRG 552 ==
LOC: E/R 10:49 → TEL 11:59
PROVIDERS: ADMIT Hospitalist; ATTEND Internal Medicine
DX: M51.16 Intervertebral disc disorders with radiculopathy, lumbar region (principal); M32.9 Systemic lupus erythematosus, unspecified; I73.00 Raynaud's syndrome without gangrene; F17.200 Nicotine dependence, unspecified, uncomplicated; I10 Essential (primary) hypertension; M21.372 Foot drop, left foot; R47.1 Dysarthria and anarthria
CPT/HCPCS: 36415; 70450; 70496; 70498; 70551; 71045; 72157; 72158; 80048; 80061; 80076; 80307; 82550; 82553; 83036; 84439; 84443; 84484; 85025; 85610; 85651; 85730; 86140; 92610; 93005; 93306; 93880; 97110; 97116; 97161; 97166; 97530; J2060; L1932; L2820; Q9967